=== PATIENT | female | born 2005 | race Two or more races ===

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

== ENCOUNTER 2023-07-23 10:19 | Emergency (ER) | payer OTHER ==
[2023-07-23 10:27] VITALS: BMI 21.6
[2023-07-23 12:06] LABS: EPI CELLS 20 /uL (0-25.1); HYALINE CASTS 0 /uL (0-3.1); URINE APPEARANCE CLOUDY; URINE BACTERIA 5337 /uL (0-1359); URINE BILIRUBIN NEGATIVE (NEGATIVE); URINE COLOR YELLOW; URINE GLUCOSE (UA) NEGATIVE (NEGATIVE); URINE KETONE NEGATIVE (NEGATIVE); URINE LEUK ESTERASE 3+ (NEGATIVE); URINE NITRITE POSITIVE (NEGATIVE); URINE PROTEIN NEGATIVE (NEGATIVE); URINE RBC 35 /uL (0-23.9); URINE UROBILINOGEN 0.2 mg/dL (0.2-1.0); URINE WBC 236 /uL (0-25.8)
[2023-07-23] MEDS ORDERED: CEPHALEXIN MONOHYDRATE 500 MG CAPSULE (UD) PO ONE (13:40)
[2023-07-23] MEDS ORDERED: CEPHALEXIN MONOHYDRATE 500 MG CAPSULE (UD) ONE (13:41)
[2023-07-23] MEDS ORDERED: PROMETHAZINE HCL 25 MG/1 ML VIAL IVPB ONE (14:27)
[2023-07-23] MEDS ORDERED: CEFAZOLIN SODIUM 2 GM in DEXTROSE 5%-WATER 100 ML IVPB SCH (14:30)
[2023-07-23] MEDS ORDERED: PROMETHAZINE HCL 25 MG/1 ML VIAL ONE (14:35)
[2023-07-23] MEDS ORDERED: DEXTROSE 5%-WATER 100 ML IVPB ONE (14:37)
[2023-07-23] MEDS ORDERED: CEFAZOLIN SODIUM 2 GM VIAL ONE (14:37)
[2023-07-23 15:03] VITALS: RESP 16
[2023-07-23 15:06] VITALS: BP 93/60; PULSE 77; TEMP 99.1
[2023-07-23] MEDS ORDERED: ELECTROLYTE-148 SOLN 1,000 ML IV SCH (17:00)
== END 2023-07-23 16:54 | disposition left against medical advice (07) ==
LOC: JER 10:19
PROC: 3E03329 Introduction of Other Anti-infective into Peripheral Vein, Percutaneous Approach (ICD-10-PCS; principal; 2023-07-23)
PROC: 3E033GC Introduction of Other Therapeutic Substance into Peripheral Vein, Percutaneous Approach (ICD-10-PCS; 2023-07-23)
PROC: 3E033GC Introduction of Other Therapeutic Substance into Peripheral Vein, Percutaneous Approach (ICD-10-PCS; 2023-07-23)
DX: O26.892 Other specified pregnancy related conditions, second trimester (principal); R10.30 Lower abdominal pain, unspecified; O21.9 Vomiting of pregnancy, unspecified; O23.42 Unspecified infection of urinary tract in pregnancy, second trimester; Z3A.20 20 weeks gestation of pregnancy
CPT/HCPCS: 76815-TC; 81003; 87086; 87186; 99284-25

== ENCOUNTER 2023-08-24 11:01 | Emergency (ER) | payer OTHER ==
[2023-08-24 11:28] VITALS: RESP 18; BMI 24.3
[2023-08-24] MEDS ORDERED: SODIUM CHLORIDE 0.9% 1000 ML INFUS.BAG IV ONE (12:11)
[2023-08-24] MEDS ORDERED: ONDANSETRON *ODT* 4 MG TABLET SL ONE (13:01)
[2023-08-24] MEDS ORDERED: FAMOTIDINE 20 MG TABLET PO ONE (13:02)
[2023-08-24] MEDS ORDERED: MAG HYDROX/AL HYDROX/SIMETH 30 ML UNIT-DOSE CUP PO ONE (13:02)
[2023-08-24] MEDS ORDERED: ONDANSETRON *ODT* 4 MG TABLET ONE (13:10)
[2023-08-24] MEDS ORDERED: FAMOTIDINE 20 MG TABLET ONE (13:10)
[2023-08-24] MEDS ORDERED: MAG HYDROX/AL HYDROX/SIMETH 30 ML UNIT-DOSE CUP ONE (13:10)
[2023-08-24 13:46] LABS: URINE APPEARANCE CLOUDY; URINE BILIRUBIN NEGATIVE (NEGATIVE); URINE COLOR YELLOW; URINE GLUCOSE (UA) NEGATIVE (NEGATIVE); URINE KETONE 2+ (NEGATIVE); URINE LEUK ESTERASE NEGATIVE (NEGATIVE); URINE NITRITE NEGATIVE (NEGATIVE); URINE PROTEIN NEGATIVE (NEGATIVE); URINE UROBILINOGEN 0.2 mg/dL (0.2-1.0)
[2023-08-24] MEDS ORDERED: ACETAMINOPHEN 1000 MG/100 ML BAG IVPB ONE (14:28)
[2023-08-24] MEDS ORDERED: ACETAMINOPHEN INJECTION 100 ML IVPB ONE (14:38)
[2023-08-24 14:48] LABS: BASO % 0.7 % (0-2.0); EOS % 0.1 % (0-4.5); HEMATOCRIT 34.1 % (32.4-45.2); HEMOGLOBIN 11.4 GM/dL (10.7-15.3); MCH 27.5 pg (25.7-33.7); MCHC 33.5 g/dl (32.0-36.0); MEAN CELL VOLUME 81.9 fl (80-96); MONO % 8.8 % (3.8-10.2); NEUT % 71.4 % (42.8-82.8); PLATELET COUNT 283 10^3/uL (134-434); RBC 4.17 M/mm3 (3.60-5.2); RDW 13.3 % (11.6-15.6); WHITE BLOOD COUNT 8.5 K/mm3 (4.0-10.0)
[2023-08-24 15:08] LABS: POTASSIUM 4.2 mmol/L (3.5-5.1)
[2023-08-24 15:11] LABS: ALBUMIN 2.4 g/dl (3.4-5.0); CALCIUM 8.9 mg/dL (8.5-10.1)
[2023-08-24 15:12] LABS: BLOOD UREA NITROGEN 4.9 mg/dL (7-18)
[2023-08-24 15:14] VITALS: BP 113/58; PULSE 84; TEMP 98.1
[2023-08-24 15:15] LABS: CREATININE 0.6 mg/dL (0.55-1.3)
[2023-08-24 15:16] LABS: BILIRUBIN,TOTAL 0.3 mg/dL (0.2-1)
== END 2023-08-24 15:56 | disposition home or self-care (01) ==
LOC: JER 11:01
PROC: 3E033NZ Introduction of Analgesics, Hypnotics, Sedatives into Peripheral Vein, Percutaneous Approach (ICD-10-PCS; principal; 2023-08-24)
DX: O26.892 Other specified pregnancy related conditions, second trimester (principal); R10.13 Epigastric pain; O21.9 Vomiting of pregnancy, unspecified; R63.0 Anorexia; O99.612 Diseases of the digestive system complicating pregnancy, second trimester; K29.70 Gastritis, unspecified, without bleeding; Z3A.25 25 weeks gestation of pregnancy; Z20.822 Contact with and (suspected) exposure to COVID-19
CPT/HCPCS: 0241U-QW; 36415; 76815; 80053; 81003; 84443; 84484; 85025; 87086; 93005; 93010; 99285-25; Q0162

== ENCOUNTER 2023-08-26 01:15 | Emergency (ER) | payer OTHER ==
[2023-08-26 01:25] VITALS: BMI 29.2
[2023-08-26 02:59] VITALS: TEMP 98.4
[2023-08-26] MEDS ORDERED: LACTATED RINGERS SOLUTION 1000 ML INFUS.BAG IV ONE (02:59)
[2023-08-26] MEDS ORDERED: MAG HYDROX/AL HYDROX/SIMETH 30 ML UNIT-DOSE CUP PO ONE (03:00)
[2023-08-26] MEDS ORDERED: MAG HYDROX/AL HYDROX/SIMETH 30 ML UNIT-DOSE CUP ONE (03:03)
[2023-08-26 03:24] LABS: BASO % 0.4 % (0-2.0); EOS % 0.4 % (0-4.5); HEMATOCRIT 32.6 % (32.4-45.2); LYMPH % 23.6 % (8-40); MCH 27.9 pg (25.7-33.7); MCHC 33.7 g/dl (32.0-36.0); MEAN CELL VOLUME 82.6 fl (80-96); MEAN PLT VOLUME 6.9 fl (7.5-11.1); MONO % 8.4 % (3.8-10.2); NEUT % 67.2 % (42.8-82.8); PLATELET COUNT 251 10^3/uL (134-434); RBC 3.95 M/mm3 (3.60-5.2); RDW 13.6 % (11.6-15.6)
[2023-08-26 03:44] LABS: CALCIUM 8.5 mg/dL (8.5-10.1)
[2023-08-26 03:45] LABS: ALBUMIN 2.4 g/dl (3.4-5.0); BLOOD UREA NITROGEN 3.8 mg/dL (7-18)
[2023-08-26 03:48] LABS: CREATININE 0.5 mg/dL (0.55-1.3)
[2023-08-26 03:50] LABS: BILIRUBIN,TOTAL 0.2 mg/dL (0.2-1); TOT PROT 5.7 g/dl (6.4-8.2)
[2023-08-26] MEDS ORDERED: ACETAMINOPHEN 1000 MG/100 ML BAG IVPB ONE (04:10)
[2023-08-26] MEDS ORDERED: ACETAMINOPHEN INJECTION 100 ML IVPB ONE (04:14)
[2023-08-26 05:40] VITALS: BP 109/54; PULSE 69; RESP 20
[2023-08-26 06:59] LABS: URINE APPEARANCE CLEAR; URINE BILIRUBIN NEGATIVE (NEGATIVE); URINE COLOR YELLOW; URINE GLUCOSE (UA) NEGATIVE (NEGATIVE); URINE KETONE TRACE (NEGATIVE); URINE LEUK ESTERASE NEGATIVE (NEGATIVE); URINE NITRITE NEGATIVE (NEGATIVE); URINE PROTEIN NEGATIVE (NEGATIVE); URINE UROBILINOGEN 0.2 mg/dL (0.2-1.0)
== END 2023-08-26 07:05 | disposition home or self-care (01) ==
LOC: JER 01:15
PROC: 3E033NZ Introduction of Analgesics, Hypnotics, Sedatives into Peripheral Vein, Percutaneous Approach (ICD-10-PCS; principal; 2023-08-26)
DX: O26.892 Other specified pregnancy related conditions, second trimester (principal); R10.13 Epigastric pain; O99.512 Diseases of the respiratory system complicating pregnancy, second trimester; R11.0 Nausea; Z3A.25 25 weeks gestation of pregnancy
CPT/HCPCS: 36415; 80053; 81003; 85025; 99284-25

== ENCOUNTER 2023-11-20 18:15 | Inpatient (IN) | payer OTHER ==
[2023-11-20] MEDS: DINOPROSTONE 10 MG VAGINAL SUPPOSITORY VG ONE (19:31)
[2023-11-20] MEDS ORDERED: ACETAMINOPHEN 325 MG TABLET (FP) ONE (19:45)
[2023-11-20 19:46] LABS: BASO % 0.2 % (0-2.0); EOS % 0.7 % (0-4.5); HEMATOCRIT 32.3 % (32.4-45.2); MCH 28.4 pg (25.7-33.7); MCHC 34.2 g/dl (32.0-36.0); MEAN PLT VOLUME 7.1 fl (7.5-11.1); MONO % 9.6 % (3.8-10.2); NEUT % 66.5 % (42.8-82.8); PLATELET COUNT 246 10^3/uL (134-434); RBC 3.89 M/mm3 (3.60-5.2); RDW 13.2 % (11.6-15.6)
[2023-11-20] MEDS: ACETAMINOPHEN 325 MG TABLET (FP) PO PRN (19:48)
[2023-11-20 19:52] LABS: INR 0.93 (0.83-1.09); PROTHROMBIN TIME (PATIENT) 10.8 SEC (9.7-13.0)
[2023-11-20 19:55] LABS: ACTIVATED PTT 24.6 SECONDS (25.2-36.5)
[2023-11-20 19:58] LABS: POTASSIUM 3.9 mmol/L (3.5-5.1)
[2023-11-20 19:59] LABS: BLOOD UREA NITROGEN 8.9 mg/dL (7-18); CALCIUM 8.4 mg/dL (8.5-10.1)
[2023-11-20 20:03] LABS: CREATININE 0.6 mg/dL (0.55-1.3)
[2023-11-20 20:25] VITALS: BMI 24.3
[2023-11-20] MEDS: ELECTROLYTE-148 SOLN 1,000 ML IV SCH (20:34)
[2023-11-20] MEDS: CALCIUM CARBONATE 650 MG TABLET PO ONE (22:11)
[2023-11-20] MEDS ORDERED: BUTORPHANOL TARTRATE 2 MG/ML VIAL ONE (23:33)
[2023-11-20] MEDS: BUTORPHANOL TARTRATE 2 MG/ML VIAL IVPUSH ONE (23:41)
[2023-11-21] MEDS ORDERED: ONDANSETRON 4 MG/2 ML VIAL ONE (05:51)
[2023-11-21] MEDS: ONDANSETRON 4 MG/2 ML VIAL IVPUSH PRN (06:00)
[2023-11-21] MEDS ORDERED: OXYTOCIN 30 UNITS in 0.9% NS 30 UNIT/500 ML INFUS.BAG IVPB ONE (09:31)
[2023-11-21] MEDS ORDERED: FENTANYL/BUPIVACAINE/NS/PF - PCEA - 50 ML DISP.SYRIN EP ONE ×3 (10:11→19:22)
[2023-11-21] MEDS: FENTANYL/BUPIVACAINE/NS/PF - PCEA - 50 ML DISP.SYRIN EP SCH (10:30)
[2023-11-21] MEDS ORDERED: NALOXONE HCL 0.4 MG/ML VIAL IVPUSH PRN (10:40)
[2023-11-21] MEDS: OXYTOCIN 30 UNITS in 0.9% NS 30 UNIT/500 ML INFUS.BAG IVPB SCH (12:10)
[2023-11-21] MEDS ORDERED: OXYTOCIN 20 UNITS in 0.9% NS 20 UNIT/1,000 ML INFUS.BAG IV ONE (21:13)
[2023-11-21] MEDS: OXYTOCIN 20 UNITS in 0.9% NS 20 UNIT/1,000 ML INFUS.BAG IV SCH (21:35)
[2023-11-21] MEDS ORDERED: ACETAMINOPHEN 325 MG TABLET (FP) PO PRN (22:01)
[2023-11-21] MEDS ORDERED: WITCH HAZEL 50% (TUCKS) 40 PAD/JAR PAD TP PRN (22:01)
[2023-11-21] MEDS ORDERED: BISACODYL 10 MG SUPP.RECT RC PRN (22:01)
[2023-11-21] MEDS ORDERED: BENZOCAINE 28 GM HEMORRHOIDAL OINTMENT TP PRN (22:01)
[2023-11-21] MEDS ORDERED: METHYLERGONOVINE MALEATE 0.2 MG/1 ML AMP IM PRN (22:01)
[2023-11-21] MEDS ORDERED: oxyCODONE HCL 5 MG TABLET PO PRN (22:01)
[2023-11-21 22:12] LABS: CORD BASE EXCESS -7.3 mmol/L (0-2); CORD HCO3 20.4 mmHg (20-29); CORD PCO2 49.6 mmHg (30-78); CORD pH 7.232 (7.14-7.44)
[2023-11-21] MEDS ORDERED: ACETAMINOPHEN 325 MG TABLET (FP) ONE (22:14)
[2023-11-21] MEDS ORDERED: IBUPROFEN 600 MG TABLET (FP) PO ONE (22:55)
[2023-11-21] MEDS: IBUPROFEN 600 MG TABLET (FP) PO PRN (23:00)
[2023-11-21] MEDS ORDERED: MEASLES,MUMPS&RUBELLA VACC/PF 0.5 ML VIAL SQ ONE (23:00)
[2023-11-22] MEDS: AMPICILLIN - 2 GM in SODIUM CHLORIDE 100 ML IVPB ONE
[2023-11-22] MEDS ORDERED: AMPICILLIN SODIUM 2 GM VIAL ONE (00:04)
[2023-11-22] MEDS ORDERED: SODIUM CHLORIDE 100 ML IVPB ONE (00:04)
[2023-11-22] MEDS: CALCIUM CARBONATE 650 MG TABLET PO ONE (00:15)
[2023-11-22 00:19] LABS: HEMATOCRIT 26.9 % (32.4-45.2); HEMOGLOBIN 8.9 GM/dL (10.7-15.3); MCHC 33.2 g/dl (32.0-36.0); MEAN CELL VOLUME 84.4 fl (80-96); MEAN PLT VOLUME 6.5 fl (7.5-11.1); PLATELET COUNT 169 10^3/uL (134-434); RBC 3.19 M/mm3 (3.60-5.2); WHITE BLOOD COUNT 10.8 K/mm3 (4.0-10.0)
[2023-11-22 00:39] LABS: POTASSIUM 3.5 mmol/L (3.5-5.1)
[2023-11-22 00:41] LABS: CALCIUM 7.5 mg/dL (8.5-10.1)
[2023-11-22 00:42] LABS: ALBUMIN 1.7 g/dl (3.4-5.0); BLOOD UREA NITROGEN 6.5 mg/dL (7-18)
[2023-11-22 00:45] LABS: CREATININE 0.7 mg/dL (0.55-1.3)
[2023-11-22 00:46] LABS: BILIRUBIN,TOTAL 0.3 mg/dL (0.2-1); TOT PROT 4.2 g/dl (6.4-8.2)
[2023-11-22 07:29] LABS: BASO % 0.2 % (0-2.0); EOS % 0.2 % (0-4.5); HEMATOCRIT 28.8 % (32.4-45.2); HEMOGLOBIN 9.7 GM/dL (10.7-15.3); LYMPH % 13.9 % (8-40); MCH 28.3 pg (25.7-33.7); MCHC 33.7 g/dl (32.0-36.0); MEAN CELL VOLUME 83.9 fl (80-96); MEAN PLT VOLUME 7.2 fl (7.5-11.1); NEUT % 77.7 % (42.8-82.8); PLATELET COUNT 196 10^3/uL (134-434); RBC 3.43 M/mm3 (3.60-5.2); RDW 13.3 % (11.6-15.6); WHITE BLOOD COUNT 11.5 K/mm3 (4.0-10.0)
[2023-11-22] MEDS: BENZOCAINE 20% 57 GM BOTTLE TP PRN (13:27)
[2023-11-22 17:35] VITALS: RESP 18
[2023-11-22] MEDS: SENNOSIDES/DOCUSATE COMBO (SENNA PLUS) TABLET (UD) PO PRN (20:48)
[2023-11-22] MEDS: MEASLES,MUMPS&RUBELLA VACC/PF 0.5 ML VIAL SQ ONE (21:22)
[2023-11-22 22:12] VITALS: TEMP 97.4
[2023-11-23 12:22] VITALS: BP 99/65; PULSE 65
== END 2023-11-23 13:55 | disposition home or self-care (01) | DRG 560 ==
LOC: JLDR 18:15 → J3W 11-22 01:15
PROVIDERS: ADMIT Family Medicine; ATTEND Family Medicine
PROC: 10E0XZZ Delivery of Products of Conception, External Approach (ICD-10-PCS; principal; 2023-11-21)
DX: O70.1 Second degree perineal laceration during delivery (principal); Z3A.38 38 weeks gestation of pregnancy; Z37.0 Single live birth
CPT/HCPCS: 36415; 36600; 80048; 80053; 82803; 85025; 85027; 85610; 85730; 86780; 86850; 86900; 86901; 88307-TC